=== PATIENT | male | born 1965 | race Caucasian/White ===

== ENCOUNTER 2018-02-01 07:49 | Day surgery (SDC) | payer BC ==
[2018-01-27 12:10] VITALS: BMI 25.7
[~2018-02-01 07:49] MED LIST: DEXAMETHASONE SOD PHOSPHATE 10 MG/ML 1 ML VIAL IV ONE; HEPARIN SODIUM,PORCINE 5,000 UNIT/ML 1 ML VIAL SQ ONE; HYDROmorphone 0.5 MG/0.5 ML SYRINGE IVP PRN; LACTATED RINGERS 1,000 ML IV SCH; MIDAZOLAM 2 MG/2 ML VIAL IV PRN; ONDANSETRON 4 MG/2 ML VIAL IVP ONE; Pre Op ABX Message 1 EACH MISC MISCELLANE ONE; SCOPOLAMINE 1.5MG/72HR PATCH TRANSDERM ONE
[2018-02-01] MEDS ORDERED: LIDOCAINE 1% 20 ML VIAL (10MG/ML) FOR IV START INTRADERMA ONE (08:25)
[2018-02-01] MEDS ORDERED: GLYCOPYRROLATE 0.2 MG/ML 2 ML VIAL ONE (09:06)
[2018-02-01] MEDS ORDERED: fentaNYL (PF) 50 MCG/ML 2 ML AMP ONE (09:06)
[2018-02-01] MEDS ORDERED: MIDAZOLAM 2 MG/2 ML VIAL ONE (09:06)
[2018-02-01] MEDS ORDERED: LIDOCAINE 1% INJ 10MG/ML (20 ML MDV) ONE (09:06)
[2018-02-01] MEDS ORDERED: ePHEDrine SULFATE/0.9% NACL/PF 50 MG/5 ML SYRINGE IV ONE (09:06)
[2018-02-01] MEDS ORDERED: PROPOFOL 10 MG/ML 20 ML VIAL IV ONE (09:06)
[2018-02-01] MEDS ORDERED: NEOSTIGMINE 1 MG/ML 10 ML VIAL ONE (09:06)
[2018-02-01] MEDS ORDERED: ROCURONIUM BROMIDE 10 MG/ML 10 ML VIAL IV ONE (09:06)
[2018-02-01] MEDS ORDERED: BUPIVACAIN-EPI 0.25%-1:200,000 30 ML VIAL SQ ONE (09:59)
[2018-02-01] MEDS ORDERED: HYDROcodone/APAP 5-325MG 1 EACH TAB PO PRN (10:33)
[2018-02-01] MEDS ORDERED: NALOXONE 0.4 MG/ML 1 ML VIAL IV PRN (10:33)
--- NOTE | 2018-02-01 10:36 | P.OP ---
Date of Procedure: 02/01/18 Procedure(s) Performed: PREOPERATIVE DIAGNOSIS: Back mass POSTOPERATIVE DIAGNOSIS: Same PROCEDURE: Excision lipomatous back mass, intermediate closure 6 cm SURGEON: Kait EBL: 5 mL ANESTHESIA: Gen. COMPLICATIONS: None OPERATIVE PROCEDURE: Patient place in the right decubitus position after general anesthesia was achieved. The upper back was prepped and draped in usual sterile fashion. The patient had a large fleshy mass in the upper mid back. An oblique incision was made using the scalpel. Dissection through the subcutaneous tissues took place using electrocautery. A large lipomatous mass was excised using blunt dissection and electrocautery. There were multiple pseudopods extending into the surrounding tissues. This was felt to be completely excised. This was just at the level of the fascia without any fascial penetration that I could visualize. Size 11 x 7 x 3 cm. No bleeding seen. Subcutaneous tissues closed using 3-0 Vicryl sutures. Skin closed using 4-0 Monocryl sutures. Intermediate closure length of 6 cm. Skin glue then applied. DISPOSITION: Stable to recovery room
[2018-02-01 10:37] VITALS: TEMP 97
[2018-02-01 10:45] VITALS: RESP 16
[2018-02-01 11:54] VITALS: BP 120/75; PULSE 69
== END 2018-02-01 12:55 | disposition home or self-care (01) ==
LOC: OR 07:49
PROVIDERS: ATTEND Surgery
DX: D17.1 Benign lipomatous neoplasm of skin and subcutaneous tissue of trunk (principal); Z79.899 Other long term (current) drug therapy; Z88.1 Allergy status to other antibiotic agents; Z88.0 Allergy status to penicillin
CPT/HCPCS: 88304; 21931; J2250; J1644; J1100; J2710; J2405; J2001; J3010; J2704

== ENCOUNTER → 2018-11-21 | Outpatient (CLI) | payer BC ==
--- NOTE | 2018-11-21 21:22 | CONS ---
CONSULTATION REASON FOR CONSULTATION: Hypersomnia. This is a 52-year-old male patient who is coming in today accompanied by his for increased tiredness and sleepiness. He carries an [place] score of 14. He works for [employer]. He snores. He quits breathing as reported by the . He goes to bed around 9 o'clock. Wakes up at 4:40 a.m. in the morning. On weekends, he wakes up at 7 o'clock in the morning and averages around 7-8 hours of sleep. No episodes of falling asleep behind the wheel or any motor vehicle accident because of feeling drowsy or sleepy. He can take naps easily if he had the opportunity to do so. His weight has been up by around 20 pounds over the past 10 years. Drinks 3 cups of coffee in the morning. No substance abuse. No alcoholism. No sleep paralysis or hallucinations, cataplexy. No restlessness in lower extremities. He has history of mild depression maintained on Prozac. PAST MEDICAL HISTORY: Depression and environmental allergies. PAST SURGICAL HISTORY: Includes sinus surgery for deviated septum and he has also previous Aspergillus infection of the sinuses back in 2001 and lipoma resection from the back in 2019. DRUG ALLERGIES: TO PENICILLIN AND ERYTHROMYCIN AND CEPHALOSPORINS. ALSO ALLERGY TO CATS. MEDICATION: Includes Prozac, Zyrtec, and vitamin D and C. SOCIAL HISTORY: The patient is a nonsmoker. No history of alcohol. No drugs. FAMILY HISTORY: Negative for sleep apnea. REVIEW OF SYSTEMS: Fourteen-point review of system was done. Positive findings are mentioned above in history of present illness. Of significance is the absence of any insomnia. No choking or gasping for air. No nocturia. No grinding of the teeth. No sleepwalking. No dry mouth. No anxiety or panic attacks. No palpitations. No sweating. PHYSICAL EXAMINATION: VITAL SIGNS: BP is 141/88, pulse is 70, respirations 16, temperature 98.2, saturation 97% on room air. Height is 5 feet 8 inches, weight 195. BMI 28.9. Neck size 16.5 inches. General appearance: Calm comfortable. Head is atraumatic, normocephalic. NECK: Supple. There is no JVD. No goiter or neck masses. Mallampati class 2. LUNGS: Clear to auscultation. HEART: Heart sounds are regular rate and rhythm. Normal S1, S2. No S3, S4. No murmurs. ABDOMEN: Soft, nontender. No organomegaly. EXTREMITIES: No edema. No cyanosis or clubbing. NEUROLOGIC: She is awake and alert. No focal neurological deficits. PSYCHIATRIC: Negative for anxiety or depression. At this point in time, his depression is well treated. IMPRESSION: 1. Hypersomnia, [place] score of 14, rule out obstructive sleep apnea. 2. Loud snoring and witnessed apneas. 3. Chronic depression. PLAN: 1. Weight loss. 2. Implement good sleep hygiene measures. 3. Proceed with a screening polysomnogram. MMODL / IJN: [id number] /
== END ==
LOC: SLEEP 16:18
PROVIDERS: ATTEND Internal Medicine Critical Care Medicine
DX: G47.10 Hypersomnia, unspecified (principal); F32.9 Major depressive disorder, single episode, unspecified; Z88.0 Allergy status to penicillin; Z88.1 Allergy status to other antibiotic agents; Z88.8 Allergy status to other drugs, medicaments and biological substances
CPT/HCPCS: 99211

== ENCOUNTER → 2022-05-11 | Outpatient (CLI) | payer BC ==
--- NOTE | 2022-05-11 13:56 | P.SLEEP ---
History of Present Illness H&P Date: 05/11/22 This is a 56-year-old male patient was coming in for an evaluation regarding his obstructive sleep apnea. The patient was seen at the sleep Center back in 2019. At that time, the patient was complaining of increased tiredness and sleepiness. His [place] score was as high as 14. He works at the [employer], and he has history of snoring and the is adamant that he quits breathing at night on multiple occasions. The patient states that he feels tired and sleepy and he can fall asleep at any time. No sleep paralysis. No hallucinations. No cataplexy. No history of any motor vehicle accident because of increased drowsiness or sleepiness. The patient has not gained weight over this past 40 years. His symptoms are essentially the same. Is going to bed at around 9 PM, getting out of the bed at around 5 AM in the morning. He averages around 8 hours of sleep. He wakes up a few times in the middle of the night to urinate. No nocturnal seizures. No sleep paralysis. No hallucinations. No cataplexy. The patient has undergone previous home sleep study and at that time, he was found to have an AHI of 5.3 consistent with mild disease. However, disease with positional and obstructive respiratory events were more monitoring the supine body position with an AHI of 20 while being supine. At that point, the patient was not offered any significant therapy and he was asked to proceed with conservative measures and sleep on his side. On today's evaluation, there is ongoing concern regarding sleep apnea and for that reason the patient comes in. The patient is considering treatment if sleep apnea is still present. No headaches. No substance abuse. No accessory also drinking. No changes in medication. No other significant events over the past 3-4 years. Review of Systems Constitutional: Reports daytime sleepiness, Reports fatigue Eyes: denies as per HPI, denies blurred vision, denies bulging eye, denies decreased vision, denies diplopia, denies discharge, denies dry eye, denies irritation, denies itching, denies pain, denies photophobia, denies loss of peripheral vision, denies loss of vision, denies tunnel vision/blind spots Ears: deny: decreased hearing, ear discharge, earache, tinnitus Ears, nose, mouth and throat: Reports as per HPI Breasts: absent: as per HPI, gynecomastia Cardiovascular: Reports as per HPI Respiratory: Reports sleep apnea, Reports snoring Genitourinary: Reports as per HPI Musculoskeletal: Reports as per HPI Musculoskeletal: absent: ankle pain, ankle stiffness, ankle swelling Integumentary: Reports as per HPI Neurological: Reports as per HPI Psychiatric: Reports anxiety, Reports depression Endocrine: Reports as per HPI Hematologic/Lymphatic: Reports as per HPI Allergic/Immunologic: Reports as per HPI Past Medical History Past Medical History: GERD/Reflux, Sleep Apnea/CPAP/BIPAP Additional Past Medical History / Comment(s): seasonal alg,mass on back- uncomfortable with positioning,Hx left arm achiness with movement-hx of mult fx to arm in ,aspergillus infection to sinus 2003 History of Any Multi-Drug Resistant Organisms: None Reported Past Surgical History: Tonsillectomy Additional Past Surgical History / Comment(s): sinus surg,ganglion cyst removed from hand, ORIF lt arm-later removed Past Anesthesia/Blood Transfusion Reactions: Motion Sickness, Postoperative Nausea & Vomiting (PONV) Additional Past Anesthesia/Blood Transfusion Reaction / Comment(s): no hx blood transfusion Past Psychological History: Anxiety, Depression Past Alcohol Use History: None Reported Past Drug Use History: None Reported - Past Family History Mother Family Medical History: Cancer Additional Family Medical History / Comment(s): breast Father Family Medical History: Cancer Medications and Allergies Home Medications Medication Instructions Recorded Confirmed Type Cetirizine HCl/Pseudoephedrine 1 each PO DAILY 01/27/18 01/27/18 History [Zyrtec-D Tablet] FLUoxetine HCL [PROzac] 10 mg PO HS 01/27/18 02/01/18 History Multivit-Min/FA/Lycopen/Lutein 1 each PO DAILY 01/27/18 01/27/18 History [Centrum Silver Men Tablet] Omeprazole/Sodium Bicarbonate 1 each PO Q7D PRN 01/27/18 02/01/18 History [Zegerid 20 mg Capsule] Hydrocodone/Acetaminophen [Silas 1 - 2 each PO Q4HR PRN #10 tab 02/01/18 Rx 5-325] Allergies Allergy/AdvReac Type Severity Reaction Status Date / Time cefaclor [From [facility]] Allergy Rash/Hives Verified 02/01/18 08:03 erythromycin base Allergy Rash/Hives Verified 02/01/18 08:03 Penicillins Allergy Rash/Hives Verified 02/01/18 08:03 Physical Exam BP is 140/90 with a pulse of 88, respiration of 16, temperature is 98.4 the side of the neck is 17.5 inches, body mass index is 29, height is 5 feet and 8 inches and body weight is 193 pounds. The pulse ox is currently on 95% on room air. The patient appeared well nourished and normally developed. Vital signs as documented. Head exam is unremarkable. No scleral icterus or corneal arcus noted. Neck is without jugular venous distension, thyromegaly, or carotid bruits. Carotid upstrokes are brisk bilaterally. Lungs are clear to auscultation and percussion. Cardiac exam reveals the PMI to be normally sized and situated. Rhythm is regular. First and second heart sounds normal. No murmurs, rubs or gallops. Abdominal exam reveals normal bowel sounds, no masses, no organomegaly and no aortic enlargement. Extremities are nonedematous and both femoral and pedal pulses are normal. Examination of the skin revealed no evidence of significant rashes, suspicious appearing nevi or other concerning lesions.Neurologically, the patient is awake and alert and the patient does not have any focal neurological deficit. Cranial nerves are essentially intact. Assessment and Plan Plan: Obstructive sleep apnea, mild in severity, positional. The patient underwent a home sleep study back in November 2018 and at that time the patient was found to have an AHI of 5.3 and his disease was positional, worse when him being in a supine body position with an AHI of 21 being supine. Ongoing fatigue and hypersomnia Loud snoring and witnessed apneas History of depression, currently inactive and stable Plan The patient's symptoms are out of proportion to his severity of sleep apnea that was encountered on his the study that was done in 2018. The patient is obviously interested in treatment. Is also considering alternatives such as oral appliance. He will obviously that evaluation. Based on his ongoing symptoms, I'm going to order a full polysomnography to evaluate the presence of sleep breathing disorder, and same time assesses sleep architecture, sleep efficiency, evidently to maintain sleep and look for any other abnormalities that could disrupt the patient's sleep. He'll be scheduled for a full polysomnogram. He is contemplating a trial of CPAP and this will be offered to him if sleep apnea is still present especially in the severity of disease progress over the past few years. Maintaining good sleep hygiene measures. Weight loss. Sleep on the side. Continues to follow. Sleep Note - Sleep Note Sleep Note: Temperature: Pulse Rate: Respiratory Rate: Blood Pressure: SpO2: Height: Weight: BMI: Neck Circumference:
== END ==
LOC: SLEEP 13:03
PROVIDERS: ATTEND Internal Medicine Critical Care Medicine
DX: G47.33 Obstructive sleep apnea (adult) (pediatric) (principal); R53.83 Other fatigue; F32.A Depression, unspecified; K21.9 Gastro-esophageal reflux disease without esophagitis; Z88.1 Allergy status to other antibiotic agents; Z88.0 Allergy status to penicillin
CPT/HCPCS: 99202

== ENCOUNTER 2022-07-12 19:21 | Outpatient (CLI) | payer BC ==
--- NOTE | 2022-08-03 16:44 | P.PCN ---
Date of Procedure: 07/12/22 Description of Procedure: Polysomnography report Date of service is 07/12/2022 Pertinent history This is a 56-year-old male patient who presented to me with symptoms of chronic hypersomnia. The patient has a previous diagnoses of obstructive sleep apnea, mild in severity, positional. The patient underwent a home sleep study back in November 2018 and at that time the patient was found to have an AHI of 5.3 and his disease was positional, worse when him being in a supine body position with an AHI of 21 being supine. As the patient was having active symptoms, he came in for reevaluation and if all polysomnography was ordered Pertinent physical findings Height is 5 feet and 8 inches, weight is 193 pounds, body mass index is 29.3 Technical description The patient was studied using a standard complex polysomnography protocol that included recording of the 2 EKG, Central, occipital and frontal EEG, right and left outer canthus EOG, submental EMG, right and left anterior tibialis EMG, respiratory airflow by thermocouple and or pressure/flow transducer, respiratory efforts by abdominal and thoracic PVDF belts, oxygen saturation by cable oximetry. Position by observation synchronized the PSG. 4 children 12 and n ontender and select patients, ETCO2 may be added to the recording. Equipment used: [employer]. Sleep characteristics The study began at 2130 and it ended at 427. The total recording time was 450 minutes. The total sleep time was done and 330.5 minutes with 66.5 minutes of wake after sleep onset. The overall sleep efficiency was 79.5%. The patient's sleep latency was 15 minutes. There was a total of 8.5% in rem sleep with a REM latency of 203.5 minutes. This gave architecture was catheterized by 26.9% stage I, 64.6% stage II, 0% stage III and 8.5% REM sleep. Sleep continuity summary The patient had a total of 47 arousals with an arousal index of 8.7 Respiratory summary This patient study showed a total of 0 obstructive apneas and 52 obstructive hypopneas. The resulting apnea popping index was 9.4 consistent with mild obstructive sleep apnea. Note that the patient disease was unchanged while in t he supine body position. Oxygenation analysis no major nocturnal oxygen sutures were encountered. The patient was able to maintain a pulse ox above 90% throughout the sleep study. The percentage of sleep spent that pulse ox of 88% below was 0.2%. The minimum pulse ox recorded was 83%. Average pulse ox was 95%. Limb movement summary No significant periodic limb movement activity was noted Cardiac summary Average heart rate was 55, minimum heart rate was 51 and a maximum heart disease was 59. The rhythm was sinus. Assessment Mild obstructive sleep apnea with an AHI of 9.4 No evidence of a nocturnal oxygen desaturation Chronic hypersomnia out of proportion to the severity of sleep apnea Plan Results were discussed with the patient Based on his ongoing symptomatology of hypersomnia and sleepiness, the patient will be given an APAP trial pressures of 5/15 cm of water with appropriate mask interface and patient will see him back in follow-up to assess his clinical response a compliancy within 30-90 days. Encourage weight loss Maintain good sleep hygiene measures We'll continue to follow
== END 2022-07-13 17:33 ==
LOC: 3 N SLEEP 19:21 → EDSTATUS 20:00 → 3 N SLEEP 07-13 05:15
PROVIDERS: ATTEND Internal Medicine Critical Care Medicine
DX: G47.33 Obstructive sleep apnea (adult) (pediatric) (principal); G47.10 Hypersomnia, unspecified
CPT/HCPCS: 95810